=== PATIENT | female | born 1985 | race Caucasian/White ===

== ENCOUNTER 2019-07-28 05:04 | Inpatient (IN) ==
[2019-07-28] MEDS ORDERED: OXYTOCIN 30 UNITS/500 ML BAG IV PRN ×2 (08:09→17:33)
--- NOTE | 2019-07-28 08:13 | History & Physical Report ---
Date of Service July 28, 2019 Assessment & Plan (1) : Admit to L&D, IVF/EFM/toco. labs. She plans for epidural at some point. Would also like to do delayed cord clamping. History of Present Illness Chief Complaint: contractions Primary Care Provider: Rose Pearson DO 34yo @ 40 05/12, presented early this morning with contractions. + movement, no vaginal bleeding, no leaking fluid. complicated with GDMA1, GBS+ Allergies Allergy/AdvReac Type Severity Reaction Status Date / Time Sulfa (Sulfonamide Allergy Intermediate hives Verified 07/28/19 08:12 Antibiotics) Home Medications Home Medications Medication Instructions Recorded Confirmed Type 21-iron fu-folic acid 1 tab PO DAILY 01/02/19 07/28/19 History acetone (urine) test #50 ea 05/08/19 07/24/19 Rx blood sugar diagnostic #120 ea 05/08/19 07/24/19 Rx blood-glucose meter #1 ea 05/08/19 07/24/19 Rx lancets 33 gauge #120 ea 05/08/19 07/24/19 Rx ferrous sulfate 1 tab PO DAILY 05/21/19 07/28/19 History Patient History Medical History Abnormal biochemical finding on screening of mother Transverse myelitis Vaginal infection Varicella Surgical History S/P wisdom tooth extraction Family History Father Hypertension Hypercholesteremia Mother Hypercholesteremia Multiple gestation Grandmother (Maternal) Osteoporosis Social History Preferred Language: Bulgarian Beliefs That Will Affect Care: None marital status: marital status details: Gwyn Petty (30) Current Living Situation: Spouse Current Living Situation Comment: [facility] current occupational status: employed 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 @ [employer] Other Information That Helps Us Care for You: No Feels Safe at Home: Yes Safety Concerns: Feels Safe At This Time Smoking Status: Never smoker Do You Dip or Chew Tobacco: No ; Second Hand Exposure: No ; Hx Alcohol Use: No Hx Substance Use: No Review of Systems All systems reviewed & are unremarkable except as noted in HPI & below Physical Exam Physical Exam: FHT Cat 1 [place] Q 2-4 SVE 2cm on arrival by RN 2 hours later, /-1 Constitutional: WD/WN, vitals as above Respiratory: normal respiratory effort, lungs clear to auscultation no respiratory distress Cardiovascular: Rate/Rhythm: regular rate and regular rhythm Gastrointestinal (Abdomen): Inspection/Auscultation: abdomen normal to inspection Percussion/Palpation: abdomen soft; abdomen nontender Gravid. No s/s chorio or abruption. Skin: no rashes, warm and dry Psychiatric: A+Ox3, euthymic affect Results & Data Vital Signs (Past 12 Hours) Vital Signs Temp Pulse Resp BP 07/28/19 07:05 20 07/28/19 07:03 36.7 C 84 20 125/78 07/28/19 05:33 36.5 C 73 20 123/79 Coding Level of Care Code None Diagnoses Z34.90
[2019-07-28 08:27] LABS: Hematocrit (blood only) 40.5 % (37-47); Hemoglobin 13.6 g/dL (12.0-16.0); Mean Corpuscular Hemoglobin 30.2 pg (25-34); Mean Platelet Volume 10.3 fL (7.4-10.4); Platelet Count 165 K/uL (130-400); RDW Coefficient of Variation 14.8 % (11.5-14.5); RDW Standard Deviation 48.5 fL (36.4-46.3); White Blood Count 9.73 K/uL (4.8-10.8)
[2019-07-28 08:28] LABS: Mean Corpuscular Hgb Conc 33.6 g/dL (32-36)
[2019-07-28] MEDS ORDERED: PENICILLIN G POTASSIUM 6 MU in DEXTROSE 5% 250 ML IV ONE (08:30)
[2019-07-28] MEDS: LACTATED RINGER'S 1,000 ML IV PRN ×2 (08:45→16:02)
[2019-07-28] MEDS: PENICILLIN G POTASSIUM 3 MU in DEXTROSE 5% 100 ML IV PRN ×3 (13:06→21:38)
[2019-07-28] MEDS ORDERED: ePHEDrine sulfate 50 MG/ML AMP ONE ×2 (15:06→21:18)
[2019-07-28] MEDS ORDERED: BUPIVACAINE 0.25% 30 ML VIAL ONE ×3 (15:07→21:18)
[2019-07-28] MEDS ORDERED: fentaNYL 2MCG/ML ROPIV 1.25MG/ML 100 ML BAG EPI ONE ×2 (15:07→21:19)
[2019-07-28] MEDS ORDERED: fentaNYL citrate 100 MCG/2 ML VIAL ONE ×2 (15:07→21:18)
[2019-07-28] MEDS ORDERED: fentaNYL 2MCG/ML ROPIV 1.25MG/ML 100 ML BAG EPI PRN ×2 (15:27→20:29)
[2019-07-28] MEDS ORDERED: ONDANSETRON INJ 2 MG/ML 2 ML VIAL IV PRN (15:27)
[2019-07-28] MEDS ORDERED: NALOXONE HCL 0.4 MG/1 ML VIAL/CARP IV PRN (15:27)
[2019-07-28] MEDS ORDERED: DiphenhydrAMINE HCL 50 MG/ML VIAL IV PRN (15:27)
[2019-07-28] MEDS ORDERED: NALBUPHINE HCL INJ 10 MG/ML AMP IV PRN (15:27)
[2019-07-28] MEDS ORDERED: ePHEDrine sulfate 50 MG/ML AMP IV PRN (15:27)
[2019-07-28] MEDS ORDERED: NALOXONE HCL 1 MG in SODIUM CHLORIDE 0.9% 1000ML 1,000 ML IV PRN (15:27)
--- NOTE | 2019-07-28 15:34 | Anesthesiology Consultation ---
Date of Service July 28, 2019 Assessment & Plan Chart Review Chart Review: Acceptable Risk for Surgery and Patient NOT seen in Pre Admission Testing Consults Requested none ASA ASA2 Proposed Anesthesia Anesthesia Type: MAC Spinal Risk / Benefits Reviewed With: PT / POA / Parent / Guardian, Accepts Plan and Informed Consent Obtained History Height/Weight Height: 5 ft 4 in Weight: 69.853 kg Allergies Allergy/AdvReac Type Severity Reaction Status Date / Time Sulfa (Sulfonamide Allergy Intermediate hives Verified 07/28/19 08:12 Antibiotics) Medications Home Medications Medication Instructions Recorded Confirmed Last Taken acetone (urine) test #50 ea 05/08/19 07/24/19 Unknown blood sugar diagnostic #120 ea 05/08/19 07/24/19 Unknown blood-glucose meter #1 ea 05/08/19 07/24/19 Unknown lancets 33 gauge #120 ea 05/08/19 07/24/19 Unknown ferrous sulfate [Iron (ferrous 325 mg PO DAILY 07/28/19 07/28/19 07/27/19 08:00 sulfate)] vit-iron fum-folic ac 1 tab PO DAILY 07/28/19 07/28/19 07/27/19 08:00 [ Vitamin] Active Medications Generic Name Dose Route Start Last Admin Trade Name Freq PRN Reason Stop Dose Admin Lactated Ringer's 1,000 mls @ 125 mls/hr 07/28/19 08:09 07/28/19 15:05 Lr IV 07/30/19 08:08 999 mls/hr .Q8H PRN Infusion L&D Protocol Protocol Penicillin G Potassium 3 mu/ 106 mls @ 100 mls/hr 07/28/19 08:09 07/28/19 15:11 Dextrose IV 08/07/19 08:08 Infused Q4H PRN Infusion Give until delivery NPO Date Last Intake of Fluids: 07/28/19 Time Last Intake of Fluids: 14:00 Date Last Intake of Solids: 07/28/19 Time Last Intake of Solids: 01:00 Past Medical History Medical History Abnormal biochemical finding on screening of mother Transverse myelitis Vaginal infection Varicella Exercise / Class Metabolic Activity II 4-5 Yardwork/Stairs/Walk up hill Past Family History Family History Father Hypertension Hypercholesteremia Mother Hypercholesteremia Multiple gestation Grandmother (Maternal) Osteoporosis Past Surgical History Surgical History S/P wisdom tooth extraction Past Anesthesia History No Hx of Anesthesia Complications and No Family Hx of Anesthesia Complications History of PONV No Hx of PONV and No Hx of Motion Sickness Social History Smoking Status: Never smoker Do You Dip or Chew Tobacco: No Hx Alcohol Use: No Hx Substance Use: No Review of Systems no chest pain or sob Physical Exam Vital Signs Last Vital Signs Temp 36.7 C 07/28/19 07:03 Pulse 96 H 07/28/19 15:34 Resp 20 07/28/19 07:05 BP 138/75 07/28/19 10:44 Pulse Ox 99 07/28/19 15:34 ENMT Mouth: no TMJ abnormality Thyromental Distance: > or= 3.5 Finger Breadths Mallampati Class: II Neck normal visual inspection Respiratory normal respiratory effort Auscultation: lungs clear to auscultation bilaterally Cardiovascular Rate/Rhythm: regular rate and regular rhythm Musculoskeletal Spine: normal cervical ROM Neurologic moves all extremities Psychiatric Orientation: alert and oriented x 3 Testing Laboratory Results 07/28/19 08:16 07/28/19 15:01 POC Glucose 85
[2019-07-28] MEDS ORDERED: Nursing to Pharmacy Communication ONE (19:25)
--- NOTE | 2019-07-28 23:46 | Labor Progress Brief Note ---
Date of Service July 28, 2019 Subjective Reason For Note: Routine Evaluation Assessment & Plan (1) Diet controlled gestational diabetes mellitus (GDM), antepartum: 34yo G1 at 40.1 weeks GA. Presented in early labor 1. Fetus Cat 1 2. No significant progress. AROM clr. Will start pitocin if contraction do not increase with the next 30 minutes. 3. Vitals: WNL 4. gDM: Normal BG (2) Supervision of normal intrauterine in primigravida: Physical Exam Genitourinary: Manual OB Exam: + cervical dilation 5 cm, + cervical effacement 90%, + station -2 and + amniotic fluid clear and bloody OB Exam Monitor Tracing: + external FHT monitor used, + intra-uterine pressure catheter used (Placed), + category I and + normal FHT variability Results & Data Vital Signs (Past 12 Hours) Vital Signs Temp Pulse Resp BP Pulse Ox 07/28/19 23:39 77 100 07/28/19 23:34 76 100 07/28/19 23:31 88 118/72 07/28/19 23:29 81 100 07/28/19 23:26 37.2 C 07/28/19 23:24 89 97 07/28/19 23:19 91 H 100 07/28/19 23:15 72 107/56 L 07/28/19 23:14 73 100 07/28/19 23:09 74 100 07/28/19 23:04 87 98 07/28/19 23:00 100 H 110/59 L 94 07/28/19 22:59 85 98 07/28/19 22:54 77 99 07/28/19 22:49 78 99 07/28/19 22:46 80 116/71 07/28/19 22:44 81 99 07/28/19 22:39 83 99 07/28/19 22:34 79 99 07/28/19 22:31 20 07/28/19 22:30 81 108/66 07/28/19 22:29 80 98 07/28/19 22:24 81 99 07/28/19 22:19 87 99 07/28/19 22:17 93 H 85 L 07/28/19 22:16 77 120/70 07/28/19 22:14 85 99 07/28/19 22:09 76 100 07/28/19 22:04 80 99 03/24/20 22:00 37.1 C 20 20 21:59 77 114/73 100 20 21:58 82 115/73 20 21:56 84 117/73 20 21:55 91 H 20 93 20 21:54 85 119/75 100 20 21:52 83 124/79 20 21:50 100 H 20 120/76 88 L 07/28/19 21:49 77 99 07/28/19 21:48 83 122/76 20 21:46 85 115/75 20 21:45 90 20 91 20 21:44 90 112/67 94 07/28/19 21:42 75 110/68 07/28/19 21:40 82 20 109/65 07/28/19 21:39 88 100 07/28/19 21:38 89 123/68 20 21:36 85 129/71 20 21:35 20 07/28/19 21:34 91 H 112/62 99 07/28/19 21:31 88 117/68 20 21:29 88 99 20 21:24 92 H 99 07/28/19 21:19 89 99 07/28/19 21:16 86 120/72 07/28/19 21:14 83 100 07/28/19 21:09 93 H 99 07/28/19 21:04 91 H 97 07/28/19 21:01 37.0 C 88 126/69 20 20:59 98 H 98 20 20:57 100 H 153/71 H 20 20:54 96 H 100 20 20:51 84 131/72 24/20 20:49 82 100 24/20 20:46 86 131/69 2420 20:44 83 100 20 20:42 88 123/74 2420 20:39 80 100 2420 20:36 81 128/76 24/20 20:34 85 126/75 100 24/20 20:32 74 125/74 24/20 20:30 76 124/71 2420 20:29 84 100 07/27/20 20:28 78 132/74 20 20:26 80 128/75 20 20:24 81 100 20 20:20 91 H 94 20 20:19 89 100 20 20:14 92 H 75 L 07/28/19 20:11 81 124/66 20 20:09 91 H 100 07/28/19 20:04 81 100 20 20:00 20 07/28/19 19:59 74 100 20 19:56 83 117/61 20 19:54 83 100 20 19:49 81 100 07/28/19 19:44 76 100 07/28/19 19:42 74 119/68 07/28/19 19:39 81 100 07/28/19 19:35 79 92 07/28/19 19:34 71 100 07/28/19 19:30 20 07/28/19 19:29 76 100 07/28/19 19:27 73 119/70 20 19:24 82 100 20 19:19 77 100 20 19:14 77 100 20 19:11 75 116/72 07/28/19 19:09 77 100 07/28/19 19:05 37.0 C 20 07/28/19 19:04 90 100 07/28/19 19:00 20 07/28/19 18:59 85 100 20 18:57 88 107/62 20 18:54 83 100 20 18:49 82 100 20 18:44 77 100 20 18:43 75 105/59 L 20 18:39 74 100 20 18:34 78 100 20 18:30 36.8 C 18 07/28/19 18:29 84 97 20 18:27 68 119/71 20 18:24 84 100 20 18:19 83 98 20 18:14 71 100 07/28/19 18:11 73 111/70 07/28/19 18:09 77 100 07/28/19 18:04 75 99 03/20 17:59 85 98 20 17:56 74 108/58 L 07/28/19 17:54 74 99 07/28/19 17:49 78 99 07/28/19 17:44 73 99 20 17:41 80 112/59 L 07/28/19 17:39 74 98 07/28/19 17:34 74 99 07/28/19 17:30 20 07/28/19 17:29 76 99 07/28/19 17:26 76 107/61 20 17:24 71 99 20 17:19 71 99 20 17:14 67 99 07/28/19 17:12 72 102/63 07/28/19 17:09 69 98 07/28/19 17:04 70 99 07/28/19 17:00 20 07/28/19 16:59 76 99 07/28/19 16:57 71 101/59 L 07/28/19 16:54 70 99 07/28/19 16:49 95 H 100 07/28/19 16:44 83 99 07/28/19 16:41 92 H 121/75 20 16:39 76 99 07/28/19 16:34 80 99 07/28/19 16:30 20 07/28/19 16:29 70 100 07/28/19 16:27 82 109/76 20 16:24 76 100 20 16:19 87 100 20 16:14 76 100 07/28/19 16:11 73 121/72 07/28/19 16:09 76 100 20 16:04 84 100 20 16:00 20 20 15:59 84 100 20 15:55 36.6 C 86 20 121/79 20 15:54 79 100 20 15:53 87 113/69 20 15:51 81 110/68 2420 15:49 87 120/74 100 0320 15:47 88 119/76 2420 15:45 84 120/69 24/20 15:44 85 100 20 15:43 85 126/74 07/28/19 15:42 88 129/75 07/28/19 15:39 89 100 07/28/19 15:34 96 H 99 07/28/19 15:29 89 100 Coding Level of Care Code None Diagnoses Diet controlled gestational diabetes mellitus (GDM), antepartum O24.410 Supervision of normal intrauterine in primigravida Z34.00
--- NOTE | 2019-07-28 23:55 | Labor Progress Brief Note ---
Date of Service July 28, 2019 Subjective Reason For Note: Routine Evaluation Assessment & Plan (1) Diet controlled gestational diabetes mellitus (GDM), antepartum: 34yo G1 at 40.1 weeks GA. Presented in early labor 1. Fetus Cat 1 2. No significant progress. AROM clr. Continue pitocin. IUPC placed 3. Vitals: WNL 4. gDM: Normal BG (2) Supervision of normal intrauterine in primigravida: Physical Exam Genitourinary: Manual OB Exam: + cervical dilation 5 cm, + cervical effacement 90%, + station -1 and + amniotic fluid clear OB Exam Monitor Tracing: + external FHT monitor used, + intra-uterine pressure catheter used (Placed), + category I and + normal FHT variability Results & Data Vital Signs (Past 12 Hours) Vital Signs Temp Pulse Resp BP Pulse Ox 07/28/19 23:49 78 100 07/28/19 23:45 75 118/72 07/28/19 23:44 78 100 07/28/19 23:39 77 100 07/28/19 23:34 76 100 07/28/19 23:31 88 118/72 07/28/19 23:29 81 100 07/28/19 23:26 37.2 C 07/28/19 23:24 89 97 07/28/19 23:19 91 H 100 07/28/19 23:15 72 107/56 L 07/28/19 23:14 73 100 07/28/19 23:09 74 100 07/28/19 23:04 87 98 07/28/19 23:00 100 H 110/59 L 94 07/28/19 22:59 85 98 07/28/19 22:54 77 99 07/28/19 22:49 78 99 07/28/19 22:46 80 116/71 07/28/19 22:44 81 99 07/28/19 22:39 83 99 07/28/19 22:34 79 99 07/28/19 22:31 20 07/28/19 22:30 81 108/66 07/28/19 22:29 80 98 07/28/19 22:24 81 99 07/28/19 22:19 87 99 07/28/19 22:17 93 H 85 L 07/28/19 22:16 77 120/70 07/28/19 22:14 85 99 07/28/19 22:09 76 100 07/28/19 22:04 80 99 07/28/19 22:00 37.1 C 20 07/28/19 21:59 77 114/73 100 07/28/19 21:58 82 115/73 07/28/19 21:56 84 117/73 07/28/19 21:55 91 H 20 93 07/28/19 21:54 85 119/75 100 07/28/19 21:52 83 124/79 07/28/19 21:50 100 H 20 120/76 88 L 07/28/19 21:49 77 99 07/28/19 21:48 83 122/76 07/28/19 21:46 85 115/75 07/28/19 21:45 90 20 91 07/28/19 21:44 90 112/67 94 07/28/19 21:42 75 110/68 07/28/19 21:40 82 20 109/65 07/28/19 21:39 88 100 07/28/19 21:38 89 123/68 07/28/19 21:36 85 129/71 20 21:35 20 07/28/19 21:34 91 H 112/62 99 07/28/19 21:31 88 117/68 07/28/19 21:29 88 99 07/28/19 21:24 92 H 99 07/28/19 21:19 89 99 07/28/19 21:16 86 120/72 07/28/19 21:14 83 100 07/28/19 21:09 93 H 99 07/28/19 21:04 91 H 97 07/28/19 21:01 37.0 C 88 126/69 20 20:59 98 H 98 20 20:57 100 H 153/71 H 20 20:54 96 H 100 20 20:51 84 131/72 2420 20:49 82 100 20 20:46 86 131/69 20 20:44 83 100 20 20:42 88 123/74 20 20:39 80 100 20 20:36 81 128/76 20 20:34 85 126/75 100 20 20:32 74 125/74 03/24/20 20:30 76 124/71 24/20 20:29 84 100 24/20 20:28 78 132/74 07/27/20 20:26 80 128/75 24/20 20:24 81 100 24/20 20:20 91 H 94 20 20:19 89 100 20 20:14 92 H 75 L 20 20:11 81 124/66 20 20:09 91 H 100 20 20:04 81 100 20 20:00 20 20 19:59 74 100 20 19:56 83 117/61 20 19:54 83 100 20 19:49 81 100 20 19:44 76 100 20 19:42 74 119/68 07/27/20 19:39 81 100 20 19:35 79 92 20 19:34 71 100 20 19:30 20 20 19:29 76 100 20 19:27 73 119/70 24/20 19:24 82 100 20 19:19 77 100 20 19:14 77 100 20 19:11 75 116/72 20 19:09 77 100 20 19:05 37.0 C 20 20 19:04 90 100 20 19:00 20 20 18:59 85 100 20 18:57 88 107/62 07/27/20 18:54 83 100 07/27/20 18:49 82 100 20 18:44 77 100 20 18:43 75 105/59 L 20 18:39 74 100 20 18:34 78 100 20 18:30 36.8 C 18 20 18:29 84 97 20 18:27 68 119/71 24/20 18:24 84 100 20 18:19 83 98 20 18:14 71 100 20 18:11 73 111/70 03/2420 18:09 77 100 20 18:04 75 99 20 17:59 85 98 20 17:56 74 108/58 L 07/28/19 17:54 74 99 20 17:49 78 99 07/28/19 17:44 73 99 07/28/19 17:41 80 112/59 L 07/28/19 17:39 74 98 07/28/19 17:34 74 99 20 17:30 20 20 17:29 76 99 20 17:26 76 107/61 20 17:24 71 99 20 17:19 71 99 07/28/19 17:14 67 99 07/28/19 17:12 72 102/63 07/28/19 17:09 69 98 07/28/19 17:04 70 99 07/28/19 17:00 20 07/28/19 16:59 76 99 07/28/19 16:57 71 101/59 L 07/28/19 16:54 70 99 20 16:49 95 H 100 07/28/19 16:44 83 99 07/28/19 16:41 92 H 121/75 20 16:39 76 99 07/28/19 16:34 80 99 20 16:30 20 07/28/19 16:29 70 100 07/28/19 16:27 82 109/76 20 16:24 76 100 20 16:19 87 100 20 16:14 76 100 20 16:11 73 121/72 2420 16:09 76 100 20 16:04 84 100 20 16:00 20 20 15:59 84 100 2420 15:55 36.6 C 86 20 121/79 20 15:54 79 100 2420 15:53 87 113/69 24/20 15:51 81 110/68 24/20 15:49 87 120/74 100 20 15:47 88 119/76 2420 15:45 84 120/69 03/24/20 15:44 85 100 07/28/19 15:43 85 126/74 07/28/19 15:42 88 129/75 07/28/19 15:39 89 100 07/28/19 15:34 96 H 99 07/28/19 15:29 89 100 Coding Level of Care Code None Diagnoses Diet controlled gestational diabetes mellitus (GDM), antepartum O24.410 Supervision of normal intrauterine in primigravida Z34.00
--- NOTE | 2019-07-28 23:57 | Labor Progress Brief Note ---
Date of Service July 28, 2019 Assessment & Plan (1) Diet controlled gestational diabetes mellitus (GDM), antepartum: 34yo G1 at 40.1 weeks GA. Presented in early labor 1. Fetus Cat 1 2. No significant progress. AROM clr. Continue pitocin. IUPC placed 3. Vitals: WNL 4. gDM: Normal BG (2) Supervision of normal intrauterine in primigravida: Physical Exam Genitourinary: OB Exam Abdomen: + vertex Manual OB Exam: + cervical dilation 6 cm, + cervical effacement 90%, + station 0 and + amniotic fluid clear OB Exam Monitor Tracing: + external FHT monitor used, + intra-uterine pressure catheter used (MVUs not adequate ), + category I and + normal FHT variability Results & Data Vital Signs (Past 12 Hours) Vital Signs Temp Pulse Resp BP Pulse Ox 07/28/19 23:54 81 99 07/28/19 23:49 78 100 07/28/19 23:45 75 118/72 07/28/19 23:44 78 100 07/28/19 23:39 77 100 07/28/19 23:34 76 100 07/28/19 23:31 88 118/72 07/28/19 23:29 81 100 07/28/19 23:26 37.2 C 07/28/19 23:24 89 97 07/28/19 23:19 91 H 100 07/28/19 23:15 72 107/56 L 07/28/19 23:14 73 100 07/28/19 23:09 74 100 07/28/19 23:04 87 98 07/28/19 23:00 100 H 110/59 L 94 07/28/19 22:59 85 98 07/28/19 22:54 77 99 07/28/19 22:49 78 99 07/28/19 22:46 80 116/71 07/28/19 22:44 81 99 07/28/19 22:39 83 99 07/28/19 22:34 79 99 07/28/19 22:31 20 07/28/19 22:30 81 108/66 07/28/19 22:29 80 98 07/28/19 22:24 81 99 07/28/19 22:19 87 99 07/28/19 22:17 93 H 85 L 07/28/19 22:16 77 120/70 03/24/20 22:14 85 99 20 22:09 76 100 20 22:04 80 99 07/28/19 22:00 37.1 C 20 07/28/19 21:59 77 114/73 100 20 21:58 82 115/73 20 21:56 84 117/73 20 21:55 91 H 20 93 07/28/19 21:54 85 119/75 100 20 21:52 83 124/79 20 21:50 100 H 20 120/76 88 L 07/28/19 21:49 77 99 07/28/19 21:48 83 122/76 07/28/19 21:46 85 115/75 07/28/19 21:45 90 20 91 07/28/19 21:44 90 112/67 94 07/28/19 21:42 75 110/68 07/28/19 21:40 82 20 109/65 07/28/19 21:39 88 100 07/28/19 21:38 89 123/68 20 21:36 85 129/71 20 21:35 20 07/28/19 21:34 91 H 112/62 99 07/28/19 21:31 88 117/68 20 21:29 88 99 07/28/19 21:24 92 H 99 20 21:19 89 99 07/28/19 21:16 86 120/72 20 21:14 83 100 07/28/19 21:09 93 H 99 07/28/19 21:04 91 H 97 07/28/19 21:01 37.0 C 88 126/69 20 20:59 98 H 98 20 20:57 100 H 153/71 H 20 20:54 96 H 100 20 20:51 84 131/72 2420 20:49 82 100 20 20:46 86 131/69 24/20 20:44 83 100 20 20:42 88 123/74 2420 20:39 80 100 20 20:36 81 128/76 2420 20:34 85 126/75 100 03/24/20 20:32 74 125/74 /24/20 20:30 76 124/71 24/20 20:29 84 100 24/20 20:28 78 132/74 24/20 20:26 80 128/75 24/20 20:24 81 100 24/20 20:20 91 H 94 07/27/20 20:19 89 100 20 20:14 92 H 75 L 20 20:11 81 124/66 20 20:09 91 H 100 20 20:04 81 100 20 20:00 20 20 19:59 74 100 20 19:56 83 117/61 20 19:54 83 100 20 19:49 81 100 20 19:44 76 100 20 19:42 74 119/68 20 19:39 81 100 20 19:35 79 92 20 19:34 71 100 20 19:30 20 20 19:29 76 100 20 19:27 73 119/70 07/27/20 19:24 82 100 20 19:19 77 100 20 19:14 77 100 20 19:11 75 116/72 20 19:09 77 100 20 19:05 37.0 C 20 07/28/19 19:04 90 100 20 19:00 20 20 18:59 85 100 20 18:57 88 107/62 20 18:54 83 100 20 18:49 82 100 20 18:44 77 100 20 18:43 75 105/59 L 07/28/19 18:39 74 100 20 18:34 78 100 20 18:30 36.8 C 18 07/28/19 18:29 84 97 20 18:27 68 119/71 20 18:24 84 100 20 18:19 83 98 20 18:14 71 100 03/20 18:11 73 111/70 07/28/19 18:09 77 100 07/28/19 18:04 75 99 20 17:59 85 98 07/28/19 17:56 74 108/58 L 07/28/19 17:54 74 99 07/28/19 17:49 78 99 07/28/19 17:44 73 99 07/28/19 17:41 80 112/59 L 07/28/19 17:39 74 98 07/28/19 17:34 74 99 20 17:30 20 07/28/19 17:29 76 99 07/28/19 17:26 76 107/61 07/28/19 17:24 71 99 07/28/19 17:19 71 99 07/28/19 17:14 67 99 07/28/19 17:12 72 102/63 07/28/19 17:09 69 98 07/28/19 17:04 70 99 07/28/19 17:00 20 07/28/19 16:59 76 99 07/28/19 16:57 71 101/59 L 07/28/19 16:54 70 99 07/28/19 16:49 95 H 100 07/28/19 16:44 83 99 07/28/19 16:41 92 H 121/75 07/28/19 16:39 76 99 07/28/19 16:34 80 99 07/28/19 16:30 20 07/28/19 16:29 70 100 07/28/19 16:27 82 109/76 07/28/19 16:24 76 100 20 16:19 87 100 20 16:14 76 100 20 16:11 73 121/72 20 16:09 76 100 20 16:04 84 100 07/28/19 16:00 20 07/28/19 15:59 84 100 20 15:55 36.6 C 86 20 121/79 20 15:54 79 100 20 15:53 87 113/69 2420 15:51 81 110/68 20 15:49 87 120/74 100 20 15:47 88 119/76 07/28/19 15:45 84 120/69 07/28/19 15:44 85 100 07/28/19 15:43 85 126/74 07/28/19 15:42 88 129/75 07/28/19 15:39 89 100 07/28/19 15:34 96 H 99 07/28/19 15:29 89 100 Coding Level of Care Code None Diagnoses Diet controlled gestational diabetes mellitus (GDM), antepartum O24.410 Supervision of normal intrauterine in primigravida Z34.00
[2019-07-29] MEDS: PENICILLIN G POTASSIUM 3 MU in DEXTROSE 5% 100 ML IV PRN ×2 (01:48→06:44)
[2019-07-29] MEDS: LACTATED RINGER'S 1,000 ML IV PRN (03:03)
[2019-07-29] MEDS ORDERED: METHYLERGONOVINE MALEATE 0.2 MG/ML AMP ONE (07:22)
[2019-07-29] MEDS ORDERED: SUPERCREAM 0.870% 15 GM JAR EXT PRN (08:00)
[2019-07-29] MEDS ORDERED: ACETAMINOPHEN 325 MG TAB PO PRN (08:00)
[2019-07-29] MEDS ORDERED: DIPHTHERIA/TETANUS/PERTUSSIS 0.5 ML SYR/VIAL IM ONE (08:00)
[2019-07-29] MEDS ORDERED: BENZOCAINE 20% AER SPR 82.5 GM CAN EXT PRN (08:00)
[2019-07-29] MEDS ORDERED: HYDROCORTISONE ACETATE 25 MG SUPP PR PRN (08:00)
[2019-07-29] MEDS ORDERED: OXYTOCIN 30 UNITS/500 ML BAG IV PRN (08:00)
[2019-07-29] MEDS ORDERED: bisacodyL 10 MG SUPP PR PRN (08:00)
--- NOTE | 2019-07-29 08:21 | Delivery Summary ---
DATE OF OPERATION: 07/29/2019 PROCEDURE: Normal spontaneous vaginal delivery with periurethral laceration repair. SURGEON: Elliott Olmedo MD PREOPERATIVE DIAGNOSES: 1. Single intrauterine at 40 weeks 2 days gestational age. 2. GBS positive. 3. Diet-controlled gestational diabetes. 4. Labor. POSTOPERATIVE DIAGNOSES: Same status post delivery. ESTIMATED BLOOD LOSS: 400 mL DRAINS: Straight cath at the completion of the case. URINE OUTPUT: 300 mL via straight catheterization. COMPLICATIONS: None. FINDINGS: Viable with weight pending and Apgars of 8 and 9 at 1 and 5 minutes respectively. PROCEDURE: The patient progressed to 10 cm dilated, 100% effaced, +2 station, pushed over intact perineum with epidural anesthesia and delivered a viable with weight and Apgars as noted above. Head of the delivered in NOÉ position, rest into right transverse and no nuchal cord was noted. Body and shoulders quickly followed. was noted to be vigorous soon after delivery and a 1-minute delayed cord clamping was initiated. Cord was then double clamped and cut and the stable on the maternal abdomen. Cord blood was obtained. Attention was then turned to deliver the placenta, delivered intact, 3-vessel cord, gentle cord traction. A Sheldon catheter was placed to ensure patency of the urethra was maintained. On inspection of perineum, vagina, and cervix, there was noted to be a periurethral laceration that extended from the urethra up to the clitoral morrow. This was repaired with interrupted stitch of 3-0 Vicryl. Needle, sponge and instrument counts were correct at the completion of the case. Both mother and were stable in the immediate post-delivery periods. I attest to the content of the Intraoperative Record and any orders documented therein. Any exception s are noted below.
--- NOTE | 2019-07-29 08:36 | Anesthesia Procedure Note ---
Date of Service July 29, 2019 Anesthesia Post Epidural Note Vital Signs Vital Signs: Temp Pulse Resp BP Pulse Ox 37.6 C H 78 18 112/71 97 07/29/19 06:55 07/29/19 08:24 07/29/19 07:39 07/29/19 08:24 07/29/19 07:24 Pain Intensity Right Buttock: Pain Intensity: 0 Notes Mental Status: alert / awake / arousable and participated in evaluation Nausea / Vomiting: adequately controlled Pain: adequately controlled Airway Patency, RR, SpO2: stable & adequate BP & HR: stable & adequate Hydration State: stable & adequate Neuraxial Anesthesia: was administered and sensory block is resolving Anesthetic Complications: no major complications apparent Epidural: Removed without complications and With tip intact
[2019-07-29] MEDS: IBUPROFEN 600 MG TAB PO PRN ×2 (11:40→16:51)
[2019-07-29] MEDS: PRENATAL VITAMIN 1 TAB PO SCH (12:42)
[2019-07-29] MEDS: DOCUSATE SODIUM 100 MG CAP PO SCH ×2 (12:43→20:59)
[2019-07-30 06:16] LABS: Hemoglobin 10.6 g/dL (12.0-16.0)
--- NOTE | 2019-07-30 06:59 | Obstetrical Progress Note ---
Date of Service July 30, 2019 Assessment & Plan (1) Supervision of normal intrauterine in primigravida: cont current care Subjective Ambulation: ambulating normally Voiding: no incontinence (having some urinary incontinence) Diet Tolerance:: regular diet Lochia:: Small Feeding Type:: breast feeding Current Pain Level(1-10): 0 Physical Exam Constitutional WD/WN, vitals as above Gastrointestinal (Abdomen) normal bowel sounds, soft, nontender, no hepatosplenomegaly Results & Data Vital Signs (Past 12 Hours) Vital Signs Temp Pulse Resp BP Pulse Ox 07/30/19 03:20 97.5 F L 78 18 129/83 98 07/29/19 23:45 98.1 F 77 18 134/79 97 07/29/19 19:25 97.7 F 77 18 121/74 97
[2019-07-30] MEDS: PRENATAL VITAMIN 1 TAB PO SCH (08:20)
[2019-07-30] MEDS: DOCUSATE SODIUM 100 MG CAP PO SCH ×2 (08:20→19:51)
[2019-07-30] MEDS ORDERED: bisacodyL 5 MG TABEC PO SCH (20:00)
[2019-07-31] MEDS: IBUPROFEN 600 MG TAB PO PRN (06:17)
--- NOTE | 2019-07-31 07:25 | Obstetrical Progress Note ---
Date of Service July 31, 2019 Assessment & Plan (1) Status post vaginal delivery: Doing well. Routine care. Plan d/c. Instructions given. Day #:: 2 Subjective Ambulation: ambulating normally Voiding: no voiding problems Passing Gas:: Yes Diet Tolerance:: regular diet Lochia:: Small Feeding Type:: breast feeding Physical Exam Constitutional WD/WN, vitals as above Cardiovascular Extremities: no calf tenderness and no edema Gastrointestinal (Abdomen) soft, nt, nd, ff/nt at u Psychiatric A+Ox3, euthymic affect Results & Data Vital Signs (Past 12 Hours) Vital Signs Temp Pulse Resp BP Pulse Ox 07/30/19 23:05 36.7 C 102 H 16 105/67 97 07/30/19 19:40 36.8 C 93 H 14 123/74 98
[2019-07-31] MEDS: DOCUSATE SODIUM 100 MG CAP PO SCH (07:49)
[2019-07-31] MEDS: PRENATAL VITAMIN 1 TAB PO SCH (07:49)
== END 2019-07-31 11:24 | disposition home or self-care (01) | DRG 807 ==
LOC: OPB 05:04 → 4S1 05:10 → 4S2 07-29 10:10

== ENCOUNTER 2021-07-28 20:48 | Inpatient (IN) ==
[2021-07-28] MEDS ORDERED: PENICILLIN G POTASSIUM 6 MU in DEXTROSE 5% 250 ML IV STA (20:59)
[2021-07-28] MEDS ORDERED: OXYTOCIN 30 UNITS/500 ML BAG IV PRN (20:59)
--- NOTE | 2021-07-28 21:01 | History & Physical Report ---
Date of Service July 28, 2021 Assessment & Plan (1) GBS bacteriuria: (2) History of gestational diabetes in prior , currently : (3) Normal labor: Plan: admit, fetus category one. epidural then arom. anticipate . History of Present Illness Chief Complaint: labor Primary Care Provider: Rose Pearson DO Patient is a 36yowf with iup at 38 0/7 weeks who represents to labor and delivery with worsening contractions. no lof/vb. +nausea. +fm. Much more painful contractions and Delivery Plans COVID POSITIVE 05/19/21 (SX STARTED 05/19/21) AMA -Weekly NST's @ 36 weeks GDM in previous *Begin monthly AC Us's @24wks GBS POSTIVEurine s/p moderna covid vaccination Flu shot given 01/27/21 SB Tdap given- 05/19/21 Today diagnosed with Flu A OB Labs: Blood Type O Positive 12/30/20 Antibody Screen NEGATIVE 12/30/20 Hemoglobin 12.9 g/dL (12.0-16.0) 05/19/21 Hematocrit 38.9 % (37-47) 05/19/21 Mean Corpuscular Volume 86.1 fL (80-100) 12/30/20 Platelet Count 214 K/uL (130-400) 12/30/20 Rubella IgG Antibody Immune (Immune) 12/30/20 Rapid Plasma Reagin Nonreactive (Nonreactive) 12/30/20 Hepatitis B Surface Antigen Neg (Neg) 12/30/20 HIV (1&2) Ab and P24 Ag, 4th Gener Neg (Neg) 12/30/20 Glucose 1 Hour 50 gm Load 159 mg/dl (70-130) H 02/06/19 Maternal Serum Alpha Fetoprotein 32.4 ng/mL 02/24/21 OB Optional Labs: Chlamydia trachomatis RNA NOT DETECTED (NOT DETECTED) 12/30/20 Neisseria gonorrhoeae RNA NOT DETECTED (NOT DETECTED) 12/30/20 Alpha Fetoprotein Triple Screen SEE NOTE 02/24/21 Labs Reviewed: 12/19/18 CF/SMA negative low risk cfdna GBS positive--mln Allergies Allergy/AdvReac Type Severity Reaction Status Date / Time Sulfa (Sulfonamide Allergy Intermediate hives Verified 07/21/21 13:20 Antibiotics) Home Medications Medication Instructions Recorded Confirmed Type [id number] fum 28 mg cap PO 12/16/20 07/21/21 History iron-folic acid 1 mg-omg3 200 mg capsule multivitamin with iron [One Tablet PO 12/26/20 07/21/21 History Daily/Iron] acetone (urine) test (Ketone Urine #50 ea 01/20/21 07/21/21 Rx Test) blood sugar diagnostic (OneTouch #150 ea 01/20/21 07/21/21 Rx Verio test strips) lancets 33 gauge (OneTouch Delica #150 ea 01/20/21 07/21/21 Rx Plus Lancet) oseltamivir 75 mg capsule (Tamiflu) 75 mg PO BID 5 Days #10 cap 07/28/21 Rx Patient History Medical History Diet controlled gestational diabetes mellitus (GDM), antepartum Transverse myelitis Vaginal infection Varicella Surgical History S/P wisdom tooth extraction Status post vaginal delivery Family History Father Hypertension Hypercholesteremia Mother Hypercholesteremia Multiple gestation Grandmother (Maternal) Osteoporosis Grandmother (Paternal) Breast cancer Aunt Ovarian cancer Denies family history of Prostate cancer Colorectal cancer Social History Smoking Status: Never smoker Second Hand Exposure: No; Hx Alcohol Use: No Hx Substance Use: No Preferred Language: Japanese Communication Ability: Effective Visual Impairment: No Limitations Hearing Ability: Normal Director Of Sleep Required: No Beliefs That Will Affect Care: None marital status: marital status details: Gwyn Petty (34) [phone] Current Living Situation: Spouse and Family Current Living Situation Comment: lives with family and dog current occupational status: employed 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
[2021-07-28] MEDS: LACTATED RINGER'S 1,000 ML IV PRN ×2 (21:19→22:15)
[2021-07-28] MEDS ORDERED: ePHEDrine sulfate 50 MG/ML AMP ONE (21:21)
[2021-07-28] MEDS ORDERED: fentaNYL 2MCG/ML ROPIVACAINE 1.25MG/ML 100 ML BAG EPI ONE (21:22)
[2021-07-28] MEDS ORDERED: fentaNYL citrate 100 MCG/2 ML VIAL ONE (21:22)
[2021-07-28] MEDS ORDERED: SODIUM CHLORIDE 0.9% INJ 10 ML VIAL ONE (21:22)
[2021-07-28] MEDS ORDERED: BUPIVACAINE 0.25% 30 ML VIAL ONE (21:22)
[2021-07-28 21:27] LABS: Hematocrit (blood only) 36.6 % (37-47); Hemoglobin 12.9 g/dL (12.0-16.0); Mean Corpuscular Hemoglobin 32.3 pg (25-34); Mean Corpuscular Hgb Conc 35.2 g/dL (32-36); Mean Corpuscular Volume 91.7 fL (80-100); Mean Platelet Volume 10.4 fL (7.4-10.4); Platelet Count 126 K/uL (130-400); RDW Coefficient of Variation 13.8 % (11.5-14.5); RDW Standard Deviation 45.8 fL (36.4-46.3); Red Blood Count 3.99 M/uL (4.2-5.4)
[2021-07-28] MEDS ORDERED: ePHEDrine sulfate 50 MG/ML AMP IV PRN (21:33)
[2021-07-28] MEDS ORDERED: ONDANSETRON INJ 2 MG/ML 2 ML VIAL IV PRN (21:33)
[2021-07-28] MEDS ORDERED: fentaNYL 2MCG/ML ROPIVACAINE 1.25MG/ML 100 ML BAG EPI PRN (21:33)
[2021-07-28] MEDS ORDERED: NALOXONE HCL 0.4 MG/1 ML VIAL/CARP IV PRN (21:33)
[2021-07-28] MEDS ORDERED: NALOXONE HCL 1 MG in SODIUM CHLORIDE 0.9% 1000ML 1,000 ML IV PRN (21:33)
[2021-07-28] MEDS ORDERED: diphenhydrAMINE 50 MG/ML VIAL IV PRN (21:33)
[2021-07-28] MEDS ORDERED: NALBUPHINE HCL INJ 10 MG/ML AMP IV PRN (21:33)
--- NOTE | 2021-07-28 21:41 | Anesthesiology Consultation ---
Date of Service July 28, 2021 Assessment & Plan Chart Review Chart Review: Patient NOT seen in Pre Admission Testing and Acceptable Risk for Labor Epidural Consults Requested none ASA ASA2 Proposed Anesthesia Anesthesia Type: Labor Epidural and CSE Risk / Benefits Reviewed With: PT / POA / Parent / Guardian, Accepts Plan and Informed Consent Obtained History Height/Weight Height: 5 ft 4 in Weight: 64.41 kg Allergies Allergy/AdvReac Type Severity Reaction Status Date / Time Sulfa (Sulfonamide Allergy Intermediate hives Verified 07/21/21 13:20 Antibiotics) Medications Home Medications Medication Instructions Recorded Confirmed Last Taken [id number] fum 28 mg cap PO 12/16/20 07/21/21 Unknown iron-folic acid 1 mg-omg3 200 mg capsule multivitamin with iron [One Tablet PO 12/26/20 07/21/21 Unknown Daily/Iron] acetone (urine) test (Ketone Urine #50 ea 01/20/21 07/21/21 Unknown Test) blood sugar diagnostic (TauRx PharmaceuticalsTouch #150 ea 01/20/21 07/21/21 Unknown Verio test strips) lancets 33 gauge (OneTouch Delica #150 ea 01/20/21 07/21/21 Unknown Plus Lancet) oseltamivir 75 mg capsule (Tamiflu) 75 mg PO BID 5 Days #10 cap 07/28/21 Unknown Active Medications Generic Name Dose Route Start Last Admin Trade Name Freq PRN Reason Stop Dose Admin Lactated Ringer's 1,000 mls @ 125 mls/hr 07/28/21 20:59 07/28/21 21:19 Lr IV 07/30/21 20:58 125 mls/hr .Q8H PRN Administration L&D Protocol Protocol NPO Date Last Intake of Fluids: 07/28/21 Time Last Intake of Fluids: 21:00 Date Last Intake of Solids: 07/28/21 Time Last Intake of Solids: 21:00 Past Medical History Medical History Diet controlled gestational diabetes mellitus (GDM), antepartum Transverse myelitis Vaginal infection Varicella Exercise / Class Metabolic Activity II 4-5 Yardwork/Stairs/Walk up hill Past Family History Family History Father Hypertension Hypercholesteremia Mother Hypercholesteremia Multiple gestation Grandmother (Maternal) Osteoporosis Grandmother (Paternal) Breast cancer Aunt Ovarian cancer Denies family history of Prostate cancer Colorectal cancer Past Surgical History Surgical History S/P wisdom tooth extraction Status post vaginal delivery Past Anesthesia History No Hx of Anesthesia Complications and No Family Hx of Anesthesia Complications History of PONV No Hx of PONV and No Hx of Motion Sickness Social History Smoking Status: Never smoker Hx Alcohol Use: No Hx Substance Use: No Review of Systems no chest pain or sob Physical Exam Vital Signs Last Vital Signs Temp 36.8 C 07/28/21 21:09 Pulse 122 H 07/28/21 21:35 Resp 18 07/28/21 21:09 BP 122/69 07/28/21 21:14 Pulse Ox 99 07/28/21 21:35 ENMT Mouth: no TMJ abnormality Thyromental Distance: > or= 3.5 Finger Breadths Mallampati Class: II Neck normal visual inspection Respiratory normal respiratory effort Auscultation: lungs clear to auscultation bilaterally Cardiovascular Rate/Rhythm: regular rate and regular rhythm Musculoskeletal Spine: normal cervical ROM Neurologic moves all extremities Psychiatric Orientation: alert and oriented x 3 Testing Laboratory Results 07/28/21 21:17
[2021-07-28] MEDS ORDERED: OSELTAMIVIR PHOSPHATE 75 MG CAP PO STA (23:35)
--- NOTE | 2021-07-28 23:47 | Labor Progress Brief Note ---
Date of Service July 28, 2021 Subjective comfortable with epidural Assessment & Plan (1) Elderly multigravida, currently : Plan: continue expectant management. fetus reassuring. anticipate . Admission and Anticipated Discharge Date Admission Date: July 28, 2021 Physical Exam 2 Physical Exam: cx--8-9/100/0 arom--clear toco--q2-3min efm--150s with mod variability, accels present, early/variable with contractions with arom Results & Data ([facility]) Vital Signs (Past 12 Hours) Vital Signs Temp Pulse Resp BP Pulse Ox 07/28/21 23:43 102 H 118/71 07/28/21 23:41 109 H 98 07/28/21 23:36 113 H 99 07/28/21 23:31 109 H 98 07/28/21 23:29 112 H 120/72 07/28/21 23:26 103 H 97 07/28/21 23:21 109 H 97 07/28/21 23:16 117 H 100 07/28/21 23:13 101 H 120/75 07/28/21 23:11 100 H 99 07/28/21 23:06 100 H 100 07/28/21 23:01 109 H 100 07/28/21 22:59 111 H 121/76 07/28/21 22:56 98 H 98 07/28/21 22:51 102 H 97 07/28/21 22:46 103 H 97 07/28/21 22:43 106 H 124/75 07/28/21 22:41 102 H 98 07/28/21 22:36 113 H 96 07/28/21 22:31 106 H 98 07/28/21 22:29 103 H 119/74 07/28/21 22:26 116 H 98 07/28/21 22:21 109 H 97 07/28/21 22:16 114 H 97 07/28/21 22:12 112 H 120/72 07/28/21 22:11 104 H 98 07/28/21 22:07 114 H 114/71 07/28/21 22:06 115 H 98 07/28/21 22:02 121 H 117/70 07/28/21 22:01 124 H 100 07/28/21 21:57 109 H 115/69 07/28/21 21:56 119 H 99 07/28/21 21:52 121 H 112/67 07/28/21 21:51 112 H 125/68 100 07/28/21 21:46 119 H 99 07/28/21 21:41 118 H 100 07/28/21 21:35 122 H 99 07/28/21 21:14 36.8 C 114 H 18 122/69 07/28/21 21:09 36.8 C 18 Coding Level of Care Code None Diagnoses Elderly multigravida, currently O09.529
[2021-07-28] MEDS ORDERED: PENICILLIN G POTASSIUM 3 MU in DEXTROSE 5% 100 ML IV PRN (23:59)
[2021-07-29] MEDS ORDERED: oxyCODONE/ACETAMINOPHEN 5mg/325mg TAB PO PRN (02:09)
[2021-07-29] MEDS ORDERED: ACETAMINOPHEN 325 MG TAB PO PRN (02:09)
[2021-07-29] MEDS ORDERED: OXYTOCIN 30 UNITS/500 ML BAG IV PRN (02:09)
[2021-07-29] MEDS ORDERED: BENZOCAINE 20% AER SPR 82.5 GM CAN EXT PRN (02:09)
[2021-07-29] MEDS ORDERED: DIPHTHERIA/TETANUS/PERTUSSIS 0.5 ML SYR/VIAL IM ONE (02:09)
[2021-07-29] MEDS ORDERED: HYDROCORTISONE ACETATE 25 MG SUPP PR PRN (02:09)
--- NOTE | 2021-07-29 02:13 | Delivery Summary ---
Vaginal Delivery Summary Date of Service July 29, 2021 Vaginal Delivery Summary and 1st Degree LAC (periclitoral) Pre-operative Diagnosis: at 38 weeks active labor gbs positive Post-operative Diagnosis: same Procedure: epidural pcn for gbs arom periclitoral laceration and repair EBL: 400cc Anesthesia: epidural Procedure: The patient pushed for 2 contractions to deliver a viable female infant in gomez position with compound arm presentation. The nose and mouth were bulb suctioned on the perineum and the rest of the was then delivered without difficulty. The baby was vigorous. The nose and mouth were again bulb suctioned and the infant was placed in the maternal abdomen for drying and attention. Cord was clamped and cut at one minute of life. Cord blood and segment obtained. Placenta delivered spontaneous, intact with a three vessel cord. Cervix/sulci/rectum were intact. A split of the labia below the clitoris and above the urethra was repaired in the normal standard fashion. Hemostasis obtained with dilute pitocin and fundal massage. Apgars were 8/9. Mother and baby doing well at the end of the delivery. [facility] [place] Vaginal Delivery Charge Delivery Type Details: and 1st Degree LAC (periclitoral)
[2021-07-29] MEDS ORDERED: ACETAMINOPHEN 500 MG TAB PO ONE (02:15)
[2021-07-29] MEDS ORDERED: ACETAMINOPHEN 500 MG TAB ONE (02:16)
[2021-07-29 07:20] LABS: Hemoglobin 11.7 g/dL (12.0-16.0)
--- NOTE | 2021-07-29 08:45 | Anesthesia Procedure Note ---
Date of Service July 29, 2021 Anesthesia Post Epidural Note Vital Signs Vital Signs: Temp Pulse Resp BP Pulse Ox 97.7 F 88 18 106/68 100 07/29/21 04:33 07/29/21 04:33 07/29/21 04:33 07/29/21 04:33 07/29/21 02:11 Notes Mental Status: alert / awake / arousable and participated in evaluation Nausea / Vomiting: adequately controlled Pain: adequately controlled Airway Patency, RR, SpO2: stable & adequate BP & HR: stable & adequate Hydration State: stable & adequate Neuraxial Anesthesia: was administered and sensory block is resolving Anesthetic Complications: no major complications apparent and Pt Satisfied with anesthetic care Epidural: Removed without complications and With tip intact
[2021-07-29] MEDS: DOCUSATE SODIUM 100 MG CAP PO SCH ×2 (09:12→19:50)
[2021-07-29] MEDS: PRENATAL VITAMIN 1 TAB PO SCH (09:12)
[2021-07-29] MEDS: OSELTAMIVIR PHOSPHATE 75 MG CAP PO SCH ×2 (10:15→20:14)
[2021-07-30] MEDS: IBUPROFEN 600 MG TAB PO PRN ×2 (03:37→08:35)
--- NOTE | 2021-07-30 08:05 | Obstetrical Progress Note ---
Date of Service July 30, 2021 Assessment & Plan (1) state: 36 yo PP1 from , doing well -Meeting all pp milestones -O+/rubella immune/ -feeling better from flu standpoint -f/u 6 weeks for appt, continue routine pp care. Peds likely not d/c'ing baby today so pt will stay overnight. Ok to d/c if baby is d/c'd Subjective Ambulation: ambulating normally Voiding: no voiding problems Passing Gas:: Yes Diet Tolerance:: regular diet Lochia:: Small Feeding Type:: breast feeding Pain well managed with medication Review of Systems Denies fevers, chills, n/v, GUERRERO, CP, SOB Physical Exam Constitutional WD/WN, vitals as above no acute distress Respiratory normal respiratory effort, lungs clear to auscultation Cardiovascular RRR, no murmur, no edema Gastrointestinal (Abdomen) Percussion/Palpation: abdomen soft; abdomen nontender fundus firm at umbilicus and NT Musculoskeletal BLE symmetric, nonerythematous, nontender Results & Data ([facility]) Vital Signs (Past 12 Hours) Vital Signs Temp Pulse Resp BP Pulse Ox 07/30/21 03:47 97.5 F L 83 18 107/71 07/29/21 23:10 97.3 F L 64 18 106/82 98
[2021-07-30] MEDS: PRENATAL VITAMIN 1 TAB PO SCH (08:35)
[2021-07-30] MEDS: OSELTAMIVIR PHOSPHATE 75 MG CAP PO SCH ×2 (08:35→20:40)
[2021-07-30] MEDS: DOCUSATE SODIUM 100 MG CAP PO SCH ×2 (08:35→20:39)
[2021-07-30] MEDS ORDERED: bisacodyL 5 MG TABEC PO SCH (20:00)
[2021-07-31] MEDS ORDERED: bisacodyL 10 MG SUPP PR PRN
[2021-07-31] MEDS: IBUPROFEN 600 MG TAB PO PRN ×2 (00:40→06:35)
--- NOTE | 2021-07-31 07:39 | Obstetrical Progress Note ---
Date of Service July 31, 2021 Assessment & Plan (1) state: Plan: 36 yo PPD2 s/p at 38 weeks -Continue routine care -Vitals reviewed- HDS, afebrile -O+, GBS+, treated, Rubella immune. Flu confirmed -Encouraged ambulation, regular diet -Pain control with ibuprofen, acetaminophen PRN -Encouraged -D/c today w/ F/u in 6 weeks withOB Admission and Anticipated Discharge Date Admission Date: July 28, 2021 Supervising Physician Co-Signing Physician Notes Resident Physician Supervision Note: I interviewed and examined the patient. Discussed with Dr. Wheatley and agree with findings and plan as documented in the note. Any exceptions or clarifications are listed here: PP2 s/p , doing well. VSS, exam benign and wnl. Meeting pp milestones, stable for d/c home today Documented By: Kiana Sanford MD Subjective 36 yo PPD2 s/p at 38 weeks. Doing well. No flu symptoms at this time. Ambulating when able and voiding appropriately. Eating and drinking w/o n/v. Bottle feeding w/o difficulty. Lochia mild. Pain controlled. No other complaints at this time. Review of Systems Review of Systems: All systems reviewed & are unremarkable except as noted in HPI & below Physical Exam Physical Exam: General: Alert, oriented, no acute distress Cardiac: Regular rate and rhythm, normal S1, S2. No murmurs appreciated. Respiratory: Clear to auscultation b/l with good air flow entry, symmetric chest rise and fall. No wheezes or crackles. No increased work of breathing or accessory muscle use Abdomen: Soft, nontender, nondistended. Fundus firm and palpable at 2 cm below umbilicus. No guarding or rebound. Skin: No rashes or lesions Extremities: Warm, dry, well-perfused with capillary refill <2s b/l. No lower extremity edema, erythema or swelling. Negative Shelli's sign b/l. Results & Data ([facility]) Vital Signs (Past 12 Hours) Vital Signs Temp Pulse Resp BP 07/31/21 00:40 36.7 C 75 16 106/73 07/30/21 20:30 36.4 C L 85 16 110/73
[2021-07-31] MEDS: DOCUSATE SODIUM 100 MG CAP PO SCH (08:41)
[2021-07-31] MEDS: PRENATAL VITAMIN 1 TAB PO SCH (08:41)
[2021-07-31] MEDS: OSELTAMIVIR PHOSPHATE 75 MG CAP PO SCH (08:41)
== END 2021-07-31 13:40 | disposition home or self-care (01) | DRG 807 ==
LOC: OPB 20:48 → 4S1 20:57 → 4E2 07-29 04:40

== ENCOUNTER 2024-04-13 07:27 | Inpatient (IN) ==
[2024-04-13] MEDS ORDERED: OXYTOCIN 30 UNITS/NSS 30 UNITS/500 ML BAG IV PRN ×2 (08:11→15:49)
[2024-04-13] MEDS ORDERED: LIDOCAINE 1% LOCAL 20 ML VIAL INFIL PRN (08:11)
[2024-04-13 08:50] LABS: Hematocrit (blood only) 35.6 % (37.0-47.0); Hemoglobin 12.2 g/dl (12.0-16.0); Mean Corpuscular Hemoglobin 29.5 pg (25.0-34.0); Mean Corpuscular Hgb Conc 34.3 g/dL (32.0-36.0); Mean Platelet Volume 10.1 fL (9.4-12.4); Platelet Count 143 K/uL (130-400); RDW Coefficient of Variation 15.9 % (11.5-14.5); RDW Standard Deviation 49.9 fL (36.4-46.3); Red Blood Count 4.14 M/uL (4.20-5.40); White Blood Count 5.84 K/ul (4.8-10.8)
--- NOTE | 2024-04-13 09:03 | History & Physical Report ---
Date of Service April 13, 2024 Assessment & Plan (1) Diet controlled gestational diabetes mellitus (GDM), antepartum: (2) Elderly multigravida, currently : (3) Marginal insertion of umbilical cord: Plan 39 yo at 41 wga presents for late term IOL VSS Fetus cat 1 Labor - will start pit A1GDM - q4bg, q2 active labor GBS+, pcn ordered epidural prn Admission and Anticipated Discharge Date Admission Date: April 13, 2024 History of Present Illness Chief Complaint: IOL Primary Care Provider: Rose Pearson, DO 39 yo at 41 wga presents for late term IOL. 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 G2 2021 G3 current denies hx stis Allergies Allergy/AdvReac Type Severity Reaction Status Date / Time Sulfa (Sulfonamide Allergy Intermediate hives Verified 04/08/24 14:35 Antibiotics) Home Medications Medication Instructions Recorded Confirmed Type prenat.vits,janett,[id number]-zeznb tab PO 1XD 08/19/23 04/08/24 History acetone (urine) test (Ketone Urine #50 ea 09/04/23 04/08/24 Rx Test strips) blood sugar diagnostic (OneTouch #150 ea 09/04/23 04/08/24 Rx Verio test strips) blood-glucose meter (OneTouch #1 ea 09/04/23 04/08/24 Rx Verio Reflect Meter) lancets 33 gauge (OneTouch Delica #150 ea 09/04/23 04/08/24 Rx Plus Lancet) Patient History Medical History (Updated 04/13/24 @ 09:07 by Kiana Sanford MD) GBS bacteriuria Varicella Transverse myelitis Vaginal infection Surgical History Status post vaginal delivery S/P wisdom tooth extraction Family History Father Hypertension Hypercholesteremia Heart disease Mother Hypercholesteremia Multiple gestation Grandmother (Maternal) Osteoporosis Grandmother (Paternal) Breast cancer Aunt Ovarian cancer Denies family history of Prostate cancer Colorectal cancer Social History Smoking Status: Never smoker Second Hand Exposure: No; Do You Dip or Chew Tobacco: No; Hx Alcohol Use: No Hx Substance Use: No Preferred Language: Bengali Communication Ability: Effective Visual Impairment: No Limitations Hearing Ability: Normal 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 Other Information That Helps Us Care for You: No Feels Safe at Home: Yes Safety Concerns: Feels Safe At This Time Assistive Devices: None Physical Exam Genitourinary: OB Exam Abdomen: + vertex and + estimated weight (7-8) Manual OB Exam: + cervical dilation 3 cm, + cervical effacement 50% and + station -2 OB Exam Monitor Tracing: + external FHT monitor used, + external uterine monitor used (irreg) and + category I (135/mod/+accel/-decel) Results & Data Vital Signs (Past 12 Hours) Vital Signs Temp Pulse Resp BP O2 Del Method 04/13/24 08:44 90 116/69 04/13/24 07:44 98.4 F 90 16 115/71 Room Air 04/13/24 07:42 90 115/71 Laboratory Results OB Labs: Blood Type O Positive 08/30/23 Antibody Screen NEGATIVE 08/30/23 Hgb 11.9 g/dl (12.0-16.0) L 02/28/24 Hct 37.6 % (37.0-47.0) 02/28/24 MCV 83.0 fL (80.0-100.0) 08/30/23 Plt Count 218 K/uL (130-400) 08/30/23 Rubella IgG Antibody Immune (Immune) 08/30/23 RPR Nonreactive (Nonreactive) 08/30/23 Treponema pallidum Ab Negative (Negative) 01/17/24 Hep Bs Antigen Neg (Neg) 12/30/20 Hep Bs Antigen NON-REACTIVE (NON-REACTIVE) 08/30/23 Hepatitis C Ab (EIA) NON-REACTIVE (NON-REACTIVE) 08/30/23 HIV 1&2 Ab/P24 Ag 4thGn Neg (Neg) 12/30/20 HIV (1&2) Ag & Ab Conf NON-REACTIVE (NON-REACTIVE) 08/30/23 Glucose 1 Hr 50 gm 159 mg/dl (70-130) H 02/06/19 Maternal Serum AFP 33.8 ng/mL 10/24/23 OB Optional Labs: Chlamydia trachomatis RNA Not Detected (NotDetected) 08/30/23 Neisseria gonorrhoeae RNA Not Detected (NotDetected) 08/30/23 Alpha Fetoprotein Triple Screen SEE NOTE 10/24/23 Labs Reviewed: 12/19/18 CF/SMA negative neg horizon--[facility] neg afp--[facility] low risk panorama--[facility] GBS+ Diagnostic Findings 03/13 EFW 41%, AC 50%, post marginal cord Coding Level of Care Code None Diagnoses Diet controlled gestational diabetes mellitus (GDM), antepartum O24.410 Elderly multigravida, currently O09.529 Marginal insertion of umbilical cord
[2024-04-13] MEDS ORDERED: Nursing to Pharmacy Communication SCH (09:15)
[2024-04-13] MEDS: PENICILLIN GK 6 MU in SODIUM CHLORIDE 0.9% 250 ML IV STA (09:18)
[2024-04-13] MEDS: SODIUM CHLORIDE 0.9% 1,000 ML IV SCH (09:18)
[2024-04-13] MEDS: OXYTOCIN 30 UNITS/NSS 30 UNITS/500 ML BAG IV PRN (09:28)
[2024-04-13] MEDS ORDERED: ROPIVACAINE 0.5% PF 5 MG/ML 20 ML VIAL EPI PRN (12:17)
[2024-04-13] MEDS ORDERED: diphenhydrAMINE 50 MG/ML VIAL IV PRN (12:17)
[2024-04-13] MEDS ORDERED: fentaNYL citrate PF 100 MCG/2 ML VIAL EPI PRN (12:17)
[2024-04-13] MEDS ORDERED: ePHEDrine sulfate 50 MG/ML AMP IV PRN (12:17)
[2024-04-13] MEDS ORDERED: fentANYL 2 MCG/ML BUPIVacaine 0.125%-NSS 100ML BAG EPI PRN (12:17)
[2024-04-13] MEDS ORDERED: LIDOCAINE 2% MPF LOCAL 5 ML VIAL EPI PRN (12:17)
[2024-04-13] MEDS ORDERED: NALBUPHINE HCL INJ 10 MG/ML AMP IV PRN (12:17)
[2024-04-13] MEDS ORDERED: NALOXONE HCL 1 MG in SODIUM CHLORIDE 0.9% 1,000 ML IV PRN (12:17)
[2024-04-13] MEDS ORDERED: SODIUM CHLORIDE 0.9% PF INJ 10 ML VIAL EPI PRN (12:17)
[2024-04-13] MEDS ORDERED: NALOXONE HCL 0.4 MG/1 ML VIAL/CARP IV PRN (12:17)
[2024-04-13] MEDS ORDERED: BUPIVACAINE 0.25% PF 30 ML VIAL EPI PRN (12:17)
--- NOTE | 2024-04-13 12:17 | Anesthesiology Consultation ---
Date of Service April 13, 2024 Assessment & Plan (1) Encounter for pre-operative examination: Chart Review Chart Review: Patient NOT seen in Pre Admission Testing and Acceptable Risk for Labor Epidural Consults Requested none History Height/Weight Height: 5 ft 4 in Weight: 68.946 kg Allergies Allergy/AdvReac Type Severity Reaction Status Date / Time Sulfa (Sulfonamide Allergy Intermediate hives Verified 04/08/24 14:35 Antibiotics) Medications Home Medications Medication Instructions Recorded Confirmed Last Taken prenat.vits,janett,fgd-tkyg-knyaa tab PO 1XD 08/19/23 04/08/24 04/12/24 07:30 acetone (urine) test (Ketone Urine #50 ea 09/04/23 04/08/24 Unknown Test strips) blood sugar diagnostic (OneTouch #150 ea 09/04/23 04/08/24 Unknown Verio test strips) blood-glucose meter (OneTouch #1 ea 09/04/23 04/08/24 Unknown Verio Reflect Meter) lancets 33 gauge (OneTouch Delica #150 ea 09/04/23 04/08/24 Unknown Plus Lancet) Active Medications Generic Name Dose Route Start Last Admin Trade Name Freq PRN Reason Stop Dose Admin Oxytocin 30 units in 500 mls @ 12 mls/hr 04/13/24 08:11 04/13/24 11:58 Pitocin 30 Units/Nss IV 04/15/24 08:10 0.72 units/hr .Q24H PRN 12 mls/hr Labor Induction/Augmentation Titration Protocol 0.72 UNITS/HR Sodium Chloride 1,000 mls @ 50 mls/hr 04/13/24 09:15 04/13/24 12:07 Nss IV 04/14/24 09:14 999 mls/hr .Q20H CIARA Infusion Past Medical History Medical History GBS bacteriuria Varicella Transverse myelitis Vaginal infection Past Family History Family History Father Hypertension Hypercholesteremia Heart disease Mother Hypercholesteremia Multiple gestation Grandmother (Maternal) Osteoporosis Grandmother (Paternal) Breast cancer Aunt Ovarian cancer Denies family history of Prostate cancer Colorectal cancer Past Surgical History Surgical History Status post vaginal delivery S/P wisdom tooth extraction Social History Smoking Status: Never smoker Do You Dip or Chew Tobacco: No Hx Alcohol Use: No Hx Substance Use: No Physical Exam Vital Signs Last Vital Signs Temp 97.7 F 04/13/24 11:02 Pulse 67 04/13/24 12:14 Resp 16 04/13/24 11:02 BP 110/70 04/13/24 11:44 Pulse Ox 96 04/13/24 12:14 O2 Del Method Room Air 04/13/24 07:44 Testing Laboratory Results 04/13/24 08:28 04/13/24 08:36 POC Glucose 119 H
[2024-04-13] MEDS: BUPIVACAINE 0.25% PF 30 ML VIAL ONE (12:44)
[2024-04-13] MEDS: fentaNYL citrate PF 100 MCG/2 ML VIAL ONE (12:44)
[2024-04-13] MEDS: LIDOCAINE 2%/EPINEPHRINE 1:200,000 20 ML PF ONE (12:44)
[2024-04-13] MEDS: fentANYL 2 MCG/ML BUPIVacaine 0.125%-NSS 100ML BAG ONE (12:48)
[2024-04-13] MEDS: BUPIVACAINE 0.25% PF 30 ML VIAL EPI STA (12:48)
[2024-04-13] MEDS: SODIUM CHLORIDE 0.9% PF INJ 10 ML VIAL EPI STA (12:49)
[2024-04-13] MEDS: fentaNYL citrate PF 100 MCG/2 ML VIAL EPI STA (12:49)
[2024-04-13] MEDS: LIDOCAINE 2%/EPINEPHRINE 1:200,000 20 ML PF EPI STA (12:49)
[2024-04-13] MEDS: PENICILLIN GK 3 MU in DEXTROSE 5% 100 ML IV PRN (13:47)
[2024-04-13] MEDS: METHYLERGONOVINE MALEATE 0.2 MG/ML AMP IM ONE (15:08)
--- NOTE | 2024-04-13 15:24 | Delivery Summary ---
Vaginal Delivery Summary Date of Service April 13, 2024 Vaginal Delivery Summary [facility] PREOPERATIVE DIAGNOSIS: 1. Single intrauterine at 41 wga 2. Late term IOL 3. A1GDM 4. GBS+ POSTOPERATIVE DIAGNOSIS: 1. Single intrauterine at 41 wga 2. Late term IOL 3. A1GDM 4. GBS+ 5. Delivered PROCEDURE: 1. Normal spontaneous vaginal delivery. SURGEON: Kiana Sanford MD ANESTHESIA: Epidural. QUANTITATIVE BLOOD LOSS: 650 mL FLUIDS: Continuous LR. URINE OUTPUT: None. COMPLICATIONS: None. CONDITION: Stable. INDICATIONS: 39 yo at 41 wga presented for late term IOL. Penicillin was started for GBS+ status. She was started on pitocin and received an epidural. She underwent srom and quickly progressed to complete and desired to push. FINDINGS: A viable female , weight pending with Apgars of 9 and 9 at 1 and 5 minutes respectively. SPECIMEN: Cord blood OPERATIVE REPORT: The patient progressed to 10 cm, 100% effaced and +2 station, pushed over intact perineum with anesthesia to deliver a viable female , weight and Apgars as above. Head of delivered in NOÉ position. No nuchal cord was present. Body and shoulders were delivered without difficulty. was delivered to maternal abdomen and nursing staff. Delayed cord clamping was performed for 60 seconds. Cord was clamped and cut. Cord blood was obtained. Placenta delivered spontaneously intact with 3-vessel cord. IV oxytocin and fundal massage were given for excellent hemostasis. Vagina, cervix, perineum, and placenta were inspected. A periclitoral laceration was repaired using 4-0 vicryl in interrupted stitches. Additional few gushes were noted so one dose of methergine was given and there was then excellent hemostasis. Sponge and needle counts correct x2. No sponges were left behind. Mother and stable in immediate period. [facility] Vaginal Delivery Charge Vaginal Delivery Codes: 28739 global code for the antepartum, delivery, and post- Delivery Type Details: [facility]
--- NOTE | 2024-04-13 15:29 | Anesthesia Procedure Note ---
Date of Service April 13, 2024 Anesthesia Post Epidural Note Vital Signs Vital Signs: Temp Pulse Resp BP Pulse Ox O2 Del Method 97.7 F 76 18 108/59 L 96 Room Air 04/13/24 11:02 04/13/24 15:24 04/13/24 14:30 04/13/24 15:07 04/13/24 15:24 04/13/24 07:44 Notes Mental Status: alert / awake / arousable and participated in evaluation Nausea / Vomiting: adequately controlled Pain: adequately controlled Airway Patency, RR, SpO2: stable & adequate BP & HR: stable & adequate Hydration State: stable & adequate Neuraxial Anesthesia: was administered and sensory block is resolving Anesthetic Complications: no major complications apparent and Pt Satisfied with anesthetic care Epidural: Removed without complications and With tip intact
[2024-04-13] MEDS ORDERED: bisacodyL 10 MG SUPP PR PRN (15:49)
[2024-04-13] MEDS ORDERED: ACETAMINOPHEN 325 MG TAB PO PRN (15:49)
[2024-04-13] MEDS ORDERED: HYDROCORTISONE ACETATE 25 MG SUPP PR PRN (15:49)
[2024-04-13] MEDS: METHYLERGONOVINE MALEATE 0.2 MG/ML AMP ONE (16:07)
[2024-04-13] MEDS: SODIUM CHLORIDE 0.9% PF INJ 10 ML VIAL ONE (16:08)
[2024-04-13] MEDS: ePHEDrine sulfate 50 MG/ML AMP ONE (16:08)
[2024-04-13] MEDS: DIPHTHER/TETAN/PERTUS Vaccine (Tdap, Adol/Adult) 0.5mL IM ONE (16:08)
[2024-04-13 17:33] VITALS: RESP 18
[2024-04-13] MEDS: BENZOCAINE 20% SPRY 85 APPLN/85 GM CAN EXT PRN (21:03)
[2024-04-13] MEDS: DOCUSATE SODIUM 100 MG CAP PO SCH (21:03)
[2024-04-14 05:02] VITALS: O2SAT 97
--- NOTE | 2024-04-14 07:16 | Obstetrical Progress Note ---
Date of Service April 14, 2024 Assessment & Plan (1) Encounter for care and examination after delivery: PP1 s/p , doing well. VSS, exam benign. O+, rub imm. Desires dc at 24 hrs Subjective Ambulation: ambulating normally Voiding: no voiding problems Passing Gas:: Yes Diet Tolerance:: regular diet Lochia:: Small Pain well managed with medication Review of Systems Denies fevers, chills, n/v, GUERRERO, CP, SOB Physical Exam Constitutional WD/WN, vitals as above no acute distress Respiratory normal respiratory effort, lungs clear to auscultation Cardiovascular RRR, no murmur, no edema Gastrointestinal (Abdomen) Percussion/Palpation: abdomen soft; abdomen nontender fundus firm at umbilicus and NT Musculoskeletal BLE symmetric, nonerythematous, nontender Results & Data Vital Signs (Past 12 Hours) Vital Signs Temp Pulse Resp BP Pulse Ox O2 Del Method 04/14/24 03:05 97.7 F 62 18 109/65 97 Room Air 04/13/24 23:15 98.1 F 53 L 18 134/87 99 Room Air 04/13/24 19:30 97.9 F 81 18 118/75 96 Room Air
[2024-04-14] MEDS: PRENATAL VITAMIN 1 TAB PO SCH (07:32)
[2024-04-14] MEDS: IBUPROFEN 600 MG TAB PO PRN (07:32)
[2024-04-14] MEDS: FERROUS SULFATE 325 MG TAB PO SCH (07:32)
[2024-04-14 08:14] VITALS: TEMP 97.9
[2024-04-14 12:07] VITALS: BP 132/74; PULSE 77
[2024-04-14] MEDS ORDERED: bisacodyL 5 MG TABEC PO SCH (20:00)
== END 2024-04-14 15:15 | disposition home or self-care (01) | DRG 768 ==
LOC: 4S1 07:27 → 4E2 18:15